=== PATIENT | male | born 1960 | race Caucasian/White ===

== ENCOUNTER 2017-07-19 07:55 | Emergency (ER) | payer SELFPAY ==
[~2017-07-19] VITALS: Ht 177.8 cm; Wt 90.7 kg
[~2017-07-19 07:55] MED LIST: DOXYCYCLINE HY100 MG PO; LEVAQUIN500 MG PO; NORCO 5-325 TA1 EACH PO
[2017-07-19] MEDS ORDERED: LEVAQUIN500 MG PO (15:30)
[2017-07-19] MEDS ORDERED: PREDNISONE20 MG PO (15:30)
[2017-07-19] MEDS ORDERED: VENTOLIN HFA18 GM INH (15:30)
== END 2017-07-19 09:52 | disposition home or self-care (01) ==
LOC: ED 07:55
DX: R50.9 Fever, unspecified (principal); R05 Cough; R09.89 Other specified symptoms and signs involving the circulatory and respiratory systems; R53.81 Other malaise

== ENCOUNTER 2021-11-07 19:53 | Emergency (ER) | payer OTHER ==
[~2021-11-07] VITALS: Ht 177.8 cm; Wt 98.8 kg
[~2021-11-07 19:53] MED LIST changes: +PREDNISONE20 MG PO; +VENTOLIN HFA18 GM INH
== END 2021-11-07 21:19 | disposition home or self-care (01) ==
LOC: ED 19:53
DX: J20.9 Acute bronchitis, unspecified (principal); I10 Essential (primary) hypertension; Z88.5 Allergy status to narcotic agent; Z20.822 Contact with and (suspected) exposure to COVID-19
CPT/HCPCS: 71045; 87502; 99285-25; U0003

== ENCOUNTER 2025-06-03 07:19 | Emergency (ER) | payer OTHER ==
[~2025-06-03] VITALS: Ht 177.8 cm; Wt 102.1 kg
[2025-06-03] MEDS ORDERED: ALBUTEROL/IPRATROPIUM 3 ML NEB INH ONE (07:45)
[2025-06-03 08:04] LABS: BASOPHILS 1.1 % (0.2-1.2); EOSINOPHILS 4.6 % (0.8-7.0); LYMPHOCYTES 25.4 % (21.8-53.1); MCH 31.8 PG (25.7-32.2); MCHC 33.0 g/dL (32.3-36.5); MCV 96.4 fL (79.0-92.2); MONOCYTES 8.4 % (5.3-12.2); NEUTROPHILS 60.4 % (34.0-67.9); RBC 4.75 M/uL (4.63-6.08)
[2025-06-03] MEDS ORDERED: FUROSEMIDE 40 MG/4 ML VIAL IV ONE (08:45)
[2025-06-03 10:21] LABS: ALT (SGPT) 46.0 U/L (14-59); AST (SGOT) 33.0 U/L (15-37); GLOMERULAR FILTRATION RATE,EST 69.0 mL/min (>60); PROTEIN, TOTAL 7.2 g/dL (6.4-8.2); UREA NITROGEN 13.0 mg/dL (7-18)
[2025-06-03 11:35] VITALS: BP 101/81
[2025-06-03] MEDS ORDERED: LASIX40 MG PO (11:37)
--- NOTE | 2025-06-04 22:21 | EKG ---
[facility] [address] [place], [place] [address] Signed Sinus rhythm with frequent premature ventricular complexes and premature atrial complexes Biatrial enlargement Possible Anterior infarct , age undetermined Prolonged QT Abnormal ECG No previous ECGs available Confirmed by Keyanna Delong MD () on 06/04/2025 10:21:15 PM Electronically Signed By: KEYANNA DELONG MD 06/04/252220 PATIENT NAME: KEVEN CAIN Electrocardiogram DATE OF : 62 PHYSICIAN: KEYANNA DELONG MD REPORT #: [id number] REPORT IS CONFIDENTIAL AND NOT TO BE RELEASED WITHOUT AUTHORIZATION
== END 2025-06-03 11:35 | disposition left against medical advice (07) ==
LOC: ED 07:19
PROVIDERS: Emergency Medicine
DX: I11.0 Hypertensive heart disease with heart failure (principal); I50.9 Heart failure, unspecified; R74.8 Abnormal levels of other serum enzymes; Z88.5 Allergy status to narcotic agent; Z53.29 Procedure and treatment not carried out because of patient's decision for other reasons
CPT/HCPCS: 36415; 71045; 80053; 83880; 84484; 85025; 93005; 93010; 94640; 96372; 99285-25; J1938